=== PATIENT | female | born 1995 | race Caucasian/White ===

== ENCOUNTER 2021-03-14 12:20 | Day surgery (SDC) | payer OTHER ==
[~2021-03-14] VITALS: Ht 162.6 cm; Wt 60.4 kg
[~2021-03-14 12:20] MED LIST: LR 1,000 ML IV ONE
[2021-03-14 13:07] LABS: HEMATOCRIT 39.4 % (36.0-47.0); HEMOGLOBIN 13.1 g/dl (12.0-15.5); MEAN CORPUSCULAR HEMOGLOBIN 30.3 pg (27.0-33.0); MEAN CORPUSCULAR HGB CONC 33.2 g/dl (32.0-36.5); MEAN CORPUSCULAR VOLUME 91.2 fl (80.0-96.0); PLATELET COUNT, AUTOMATED 307 10^3/uL (150-450); RED BLOOD COUNT 4.32 10^6/uL (4.00-5.40); WHITE BLOOD COUNT 6.6 10^3/uL (4.0-10.0)
[2021-03-14] MEDS ORDERED: ONDANSETRON 4MG/2ML VIAL As Ordered ONE (13:12)
[2021-03-14] MEDS ORDERED: propofoL 200 MG/20 ML VIAL As Ordered ONE (13:12)
[2021-03-14] MEDS ORDERED: LIDOCAINE 2% 100MG/5ML SDV (FOR ANES.) As Ordered ONE (13:12)
[2021-03-14] MEDS ORDERED: dexameTHASONE 4 MG/ML 1ML VIAL (J1100 PER 1MG) As Ordered ONE (13:12)
[2021-03-14] MEDS ORDERED: KETOROLAC 60MG 2ML VIAL As Ordered ONE (13:12)
[2021-03-14] MEDS ORDERED: fentaNYL 100 MCG/2 ML INJECTION (J3010) As Ordered ONE (13:12)
[2021-03-14] MEDS ORDERED: METOCLOPRAMIDE INJ 10MG/2ML VIAL (J2765 PER 1) As Ordered ONE (13:12)
[2021-03-14] MEDS ORDERED: MIDAZOLAM INJ 2MG/2ML VIAL (J2250 PER 1MG) As Ordered ONE (13:12)
[2021-03-14 13:50] LABS: HCG, SERUM QUALITATIVE NEGATIVE (NEGATIVE)
[2021-03-14] MEDS ORDERED: IODINE STRONG SOLN 15 ML BTL As Ordered ONE (14:40)
[2021-03-14] MEDS ORDERED: LIDOCAINE W/EPINEPHRINE 1% 20ML VIAL As Ordered ONE (14:40)
[2021-03-14] MEDS ORDERED: ACETAMINOPHEN 1000MG 100ML IV BTL (OFIRMEV) (J0131 PER 10MG) As Ordered ONE (14:47)
[2021-03-14] MEDS ORDERED: DESFLURANE 240 ML INHALANT As Ordered ONE (15:05)
--- NOTE | 2021-03-14 15:50 | RO ---
OPERATIVE NOTE DATE OF OPERATION: 03/14/2021 PREOPERATIVE DIAGNOSIS: Cervical dysplasia SILVANO 2. POSTOPERATIVE DIAGNOSIS: Cervical dysplasia SILVANO 2. PROCEDURE: Loop electrosurgical excision Procedure. SURGEON: Hunter Abdullahi D.O. CREDIT ADMINISTRATION SPECIALIST: None. IV FLUIDS: 700 mL lactated ringers (LR). URINE OUTPUT: 20 mL via straight cath. ESTIMATED BLOOD LOSS: 5 mL. COMPLICATIONS: None. ANTIBIOTICS: None indicated. ANESTHESIA: General DESCRIPTION OF PROCEDURE: The risks, benefits, indications, and alternatives of the procedure were reviewed with the patient and informed consent was obtained. The patient was taken to the operating room where general anesthesia was obtained without difficulty. The patient was then placed in the lithotomy position using Ravi stirrups. The patient was then prepped and draped in the usual sterile fashion and the bladder was drained using in-and-out catheter. A surgical time-out was then performed and the patient's identify and planned procedure were verified with the operative team. A sterile Grave's speculum was then placed into the vagina and the cervix was visualized. IUD strings were seen protruding from the cervical os. Lugol's solution was then copiously applied to the cervix, which highlighted a lesion at the 6 o'clock position. A paracervical block was then performed using approximately 10 mL of Lidocaine with epinephrine. The LEEP device was then set to 60-60 blend and activated. A loop electrocautery wire was passed across the external cervical os with a single pass. Production of an adequate sample was collected and sent to pathology for review. Superficial electrocoagulation of the cervical stroma was performed and excellent hemostasis was achieved. Monsel's solution was applied to the cervix. All instruments were then removed from the patient's vagina. At completion of the case, the sponge, instrument, and needle counts were correct x2. The patient tolerated the procedure well and was taken to the recovery room in stable condition. CODIE
[2021-03-14] MEDS ORDERED: ONDANSETRON 4MG/2ML VIAL IV PRN (16:00)
[2021-03-14] MEDS ORDERED: HYDROMORPHONE HCL 0.5 MG/ 0.5 ML SYRINGE (J1170 PER 1) IV PRN (16:00)
[2021-03-14] MEDS ORDERED: oxyCODONE 5MG TAB PO PRN (16:00)
[2021-03-14] MEDS ORDERED: fentaNYL 100 MCG/2 ML INJECTION (J3010) IV PRN (16:00)
[2021-03-14] MEDS ORDERED: LR 1,000 ML IV SCH (16:00)
[2021-03-14] MEDS ORDERED: KETOROLAC 30 MG/ML 1ML VIAL IV PRN (16:00)
[2021-03-14 17:05] VITALS: BP 115/64
== END 2021-03-14 17:10 | disposition home or self-care (01) ==
LOC: M SDC 12:20
PROVIDERS: ATTEND Obstetrics & Gynecology
DX: N87.1 Moderate cervical dysplasia (principal)
CPT/HCPCS: 36415; 57522; 84703; 85027; 88307; J0131; J1100; J1885; J2250; J2405; J2765; J3010